=== PATIENT | female | born 1975 | race African-American/Black ===

== ENCOUNTER 2022-05-19 01:20 | Inpatient (IN) ==
[2022-05-19] MEDS ORDERED: INSULIN REGULAR 100 UNIT/ML SUBCUT STA (02:11)
[2022-05-19] MEDS ORDERED: hydrALAZINE 20 MG/1 ML VIAL IV STA (02:11)
[2022-05-19] MEDS ORDERED: SODIUM CHLORIDE 0.9% 1,000 ML IV STA (02:11)
[2022-05-19 03:09] LABS: Basophils # 0.1 10*3/uL (0.0-0.2); Basophils % 0.4 % (0.0-0.8); Eosinophils # 0.1 10*3/uL (0.0-0.87); Eosinophils % 0.7 % (0.00-10.9); Hematocrit 39.6 VOL% (35.7-47.0); Hemoglobin 12.4 GM/DL (12.0-16.0); Immature Granulocytes Absolute 0.13 #; Lymphocytes # 3.7 10*3/uL (1.4-4.0); Lymphocytes % 27.2 % (21.3-54.2); Mean Corpuscular HGB Conc 31.3 GM/DL (32-36); Mean Platelet Volume 11.2 FL (9.6-12.0); Monocytes # 0.6 10*3/uL (0.11-0.8); Monocytes % 4.3 % (1.7-12.7); Neutrophils % 66.4 % (38.7-73.9); Platelet Count 329 T/CUMM (130-400); Red Blood Count 5.08 MC/CUMM (3.8-5.5); Red Cell Distribution Width 13.5 % (9.3-17.3); White Blood Count 13.7 T/CUMM (4-12)
[2022-05-19 03:30] LABS: Bacteria,Urine Many /HPF (Few); Glucose,Urine (UA) >1000 mg/dL (Negative); Mucus,Urine Occasional /LPF (Occasional); Protein,Urine 100 mg/dL (Negative); RBC,Urine 2 /HPF (0-4); Squamous Epithelial Cell,Urine Occasional /HPF (0-10); Urine Appearance Clear (Clear); Urine Color Yellow (Yellow)
[2022-05-19 03:31] LABS: Bilirubin,Urine Negative (Negative); Blood, Urine Trace mg/dL (Negative); Ketones,Urine Trace mg/dL (Negative); Nitrite,Urine Negative (Negative); Urine Urobilinogen 0.2 eU/dL (<2.0)
[2022-05-19 03:33] LABS: Alanine Aminotransferase 29 U/L (13-56); Alkaline Phosphatase 145 U/L (45-117); Amylase 39 U/L (25-115); Aspartate Amino Transferase 12 U/L (0-37); Bilirubin,Total < 0.39 MG/DL (0.20-1.00); Blood Urea Nitrogen 11 MG/DL (7-18); Calcium 9.3 MG/DL (8.5-10.1); Carbon Dioxide 26 MMOL/L (21-32); Chloride 102 MMOL/L (98-107); Glucose 380 MG/DL (74-106); Osmolality,Calculated 287.8 MOS/KG (273-304); Potassium 2.9 MMOL/L (3.5-5.1); Sodium 137 MMOL/L (136-145); Total Protein 8.6 G/DL (6.4-8.2)
[2022-05-19] MEDS ORDERED: MAGNESIUM SULF RIDER 2 GM/50 ML PREMIX IV STA (03:52)
[2022-05-19] MEDS ORDERED: POTASSIUM CHLORIDE 20 MEQ TABLET PO STA (03:52)
[2022-05-19] MEDS ORDERED: LABETALOL 20 MG/4 ML SYRINGE IV STA (04:15)
[2022-05-19] MEDS ORDERED: LABETALOL 20 MG/4 ML SYRINGE IV ONE (04:16)
[2022-05-19] MEDS ORDERED: niCARdipine INJ 25 MG in SODIUM CHLORIDE 0.9% 240 ML IV PRN (04:35)
[2022-05-19] MEDS ORDERED: amLODIPine 5 MG TABLET PO STA (04:35)
[2022-05-19] MEDS ORDERED: ALBUTEROL 2.5 MG/3 ML NEB RESP TX PRN (06:29)
[2022-05-19] MEDS ORDERED: CALCIUM CARBONATE CHEW 500 MG TABLET PO PRN (06:29)
[2022-05-19] MEDS ORDERED: PROMETHAZINE 25 MG/1 ML VIAL IM PRN (06:29)
[2022-05-19] MEDS ORDERED: ONDANSETRON 4 MG/2 ML VIAL IV PRN (06:29)
[2022-05-19] MEDS ORDERED: DEXTROSE 10% 250 ML BAG IV PRN (06:33)
[2022-05-19] MEDS ORDERED: GLUCAGON 1 MG VIAL IM PRN (06:33)
[2022-05-19] MEDS ORDERED: INSULIN REGULAR 100 UNIT/ML IV STA (06:47)
[2022-05-19] MEDS ORDERED: hydrALAZINE 20 MG/1 ML VIAL IV PRN (06:55)
[2022-05-19 07:06] LABS: Calcium 9.4 MG/DL (8.5-10.1); Osmolality,Calculated 286.8 MOS/KG (273-304); Potassium 3.1 MMOL/L (3.5-5.1)
[2022-05-19 07:17] LABS: Risk Ratio 5.22; VLDL Cholesterol 15.8 MG/DL
[2022-05-19] MEDS ORDERED: POTASSIUM CHLORIDE 20 MEQ TABLET PO ONE (07:53)
[2022-05-19] MEDS ORDERED: MAGNESIUM SULF RIDER 2 GM/50 ML PREMIX IV ONE (07:53)
[2022-05-19] MEDS: ENOXAPARIN 40 MG/0.4 ML SYRINGE SUBCUT SCH (08:20)
[2022-05-19] MEDS: FAMOTIDINE 20 MG/2 ML VIAL IV SCH ×2 (08:26→17:48)
[2022-05-19] MEDS: INSULIN REGULAR 100 UNIT/ML SUBCUT SCH ×4 (09:00→22:10)
[2022-05-19] MEDS: POTASSIUM CHLORIDE RIDER 10 MEQ/100 ML PREMIX IV SCH ×6 (10:55→17:46)
[2022-05-19] MEDS: lisinopriL 10 MG TABLET PO SCH (10:56)
[2022-05-19] MEDS: DAPAGLIFLOZIN 5 MG TABLET PO SCH (11:45)
[2022-05-19] MEDS ORDERED: INSULIN GLARGINE 100 UNIT/ML SUBCUT SCH (21:00)
[2022-05-19] MEDS ORDERED: ROSUVASTATIN 10 MG TABLET PO SCH (21:00)
[2022-05-20 04:31] LABS: Basophils % 0.3 % (0.0-0.8); Eosinophils % 0.3 % (0.00-10.9); Hematocrit 38.3 VOL% (35.7-47.0); Hemoglobin 11.8 GM/DL (12.0-16.0); Immature Granulocytes % 0.5 %; Immature Granulocytes Absolute 0.08 #; Lymphocytes # 3.8 10*3/uL (1.4-4.0); Lymphocytes % 25.1 % (21.3-54.2); Mean Corpuscular HGB Conc 30.8 GM/DL (32-36); Monocytes # 0.7 10*3/uL (0.11-0.8); Monocytes % 4.8 % (1.7-12.7); Platelet Count 321 T/CUMM (130-400); Red Blood Count 4.91 MC/CUMM (3.8-5.5); Red Cell Distribution Width 14.1 % (9.3-17.3); White Blood Count 15.1 T/CUMM (4-12)
[2022-05-20 04:50] LABS: Albumin 3.6 G/DL (3.4-5.0); Bilirubin,Total 0.5 MG/DL (0.20-1.00); Calcium 9.6 MG/DL (8.5-10.1); Osmolality,Calculated 275.7 MOS/KG (273-304); Potassium 4.1 MMOL/L (3.5-5.1); Total Protein 7.9 G/DL (6.4-8.2)
[2022-05-20] MEDS: FAMOTIDINE 20 MG/2 ML VIAL IV SCH (06:00)
[2022-05-20] MEDS: ENOXAPARIN 40 MG/0.4 ML SYRINGE SUBCUT SCH (06:00)
[2022-05-20] MEDS: INSULIN REGULAR 100 UNIT/ML SUBCUT SCH ×2 (07:41→12:42)
[2022-05-20] MEDS: DAPAGLIFLOZIN 5 MG TABLET PO SCH (08:23)
[2022-05-20] MEDS: lisinopriL 10 MG TABLET PO SCH (08:23)
[2022-05-20] MEDS ORDERED: ACETAMINOPHEN 325 MG TABLET PO PRN (08:56)
[2022-05-20] MEDS ORDERED: LOSARTAN 50 MG TABLET PO SCH (09:00)
[2022-05-20 12:37] VITALS: BP 155/90
== END 2022-05-20 13:10 | disposition home or self-care (01) | DRG 305 ==
LOC: EDUNIT# → EDBD → SUATTDRO → N.ED 01:20 → N.EDINP 06:29 → N.TELEN 08:30
PROVIDERS: ADMIT Internal Medicine; ATTEND Internal Medicine